=== PATIENT | male | born 1995 | race Caucasian/White ===

== ENCOUNTER 2019-09-13 16:07 | Emergency (ER) | payer BC, OTHER, SELFPAY ==
--- NOTE | 2019-09-13 16:30 | ED.URI ---
HPI - URI/Sore Throat General Chief Complaint: Upper Respiratory Infection Stated Complaint: sore throat History of Present Illness HPI Narrative: This is a 24 year old that comes in complaining of a sore throat that started yesterday and his tonsil are swollen and it hurts to swallow . Patient states he want to make sure that he does not have strep because he had a fever although he does not know the temp. Related Data Allergies Allergy/AdvReac Type Severity Reaction Status Date / Time No Known Allergies Allergy Verified 09/13/19 16:25 Review of Systems Review of Systems: Narrative: CONSTITUTIONAL: Reports fever, chills, or sweats. EYES: Denies visual changes, redness, or discharge. ENT: Reports rhinorrhea, congestion, sore throat, or otalgia. CARDIOVASCULAR:Denies chest pain, palpitations, or edema. RESPIRATORY: Denies cough or dyspnea. GASTROINTESTINAL: Denies abdominal pain, nausea, vomiting, or diarrhea. GENITOURINARY: Denies dysuria or hematuria. SKIN:[Denies rash or itching. MUSCULOSKELETAL:Denies back pain, joint pain, or myalgia. NEUROLOGIC: Denies headache, numbness, or weakness. PSYCHIATRIC:Denies anxiety or depression PMFSH Comments At time as signature, I have reviewed and agree with nursing past medical, social, surgical and family history. Please see nursing chart for further information. There is no relevant family history pertinent to the presenting complaint. Exam Narrative: Exam Narrative: GENERAL:Well-appearing, well-nourished, and in no acute distress. HEAD:Normocephalic, atraumatic. EYES: PERRLA and EOMI. ENT: Nares clear, no rhinorrhea or epistaxis. Mucous membranes moist. Pharyngeal erythema bilateral enlarged tonsils with exudate copious secretions NECK: Supple. CHEST: Clear to auscultation. No respiratory distress. HEART: Regular rate and rhythm. No murmur heard. Normal peripheral pulses. ABDOMEN: Soft, nontender, nondistended, normal active bowel sounds. EXTREMITIES: Normal range of motion. No edema. SKIN: Warm, dry, no rash. NEURO: No focal deficits. Alert and oriented x3. Course Vital Signs Vital signs: Vital Signs Temperature 99.2 F 09/13/19 16:40 Pulse Rate 101 H 09/13/19 16:40 Respiratory Rate 16 09/13/19 16:40 Blood Pressure 120/81 09/13/19 16:40 Pulse Oximetry 100 09/13/19 16:40 Temperature 99.2 F 09/13/19 16:40 Pulse Rate 101 H 09/13/19 16:40 Respiratory Rate 16 09/13/19 16:40 Blood Pressure 120/81 09/13/19 16:40 Pulse Oximetry 100 09/13/19 16:40 MDM - URI/Sore Throat Lab Data Labs: Strep Screen Positive Group A Strep *(Reference Range: Negative)* Discharge Plan Discharge Clinical Impression: Strep throat Patient Disposition: Home, Self-Care Condition: Stable Instructions: Antibiotic Form, Strep Throat (ED) Additional Instructions: Gargle warm salt water change you toothbrush in 2 days Drink plenty of fluids Take your medication as directed. Prescriptions: New amoxicillin 500 mg capsule 500 mg PO Q12H 10 Days Qty: 20 RF: 0 Follow-up/Referrals: UNKNOWN,DOCTOR [Primary Care Provider] - Time of Disposition: 16:33 Discharge Date/Time: 09/13/19 16:37
[2019-09-13 16:40] VITALS: BP 120/81; PULSE 101; RESP 16; TEMP 37.3; O2SAT 100
== END 2019-09-13 16:37 | disposition home or self-care (01) ==
PROVIDERS: Emergency Provider Nurse Practitioner Family
DX: J02.0 Streptococcal pharyngitis (principal)
CPT/HCPCS: 87880; 99213; G0463

== ENCOUNTER 2019-12-31 14:21 | Emergency (ER) | payer OTHER, SELFPAY ==
[2019-12-31 14:30] VITALS: BP 133/90; PULSE 55; RESP 16; TEMP 36.9; O2SAT 100
--- NOTE | 2019-12-31 14:30 | ED.GENADULT ---
HPI - General Adult General Chief complaint: Wound/Laceration Stated complaint: Laceration on Wrist Time Seen by Provider: 12/31/19 14:38 Source: patient Mode of arrival: ambulatory Limitations: no limitations History of Present Illness HPI narrative: 24-year-old male patient presents to the [facility] with complaints of a laceration to the left wrist that he did with a saw today. Patient states he was building a fence. Patient unaware of when his last tetanus shot was states that he will call his mother. Patient denies any numbness or tingling and denies any decrease in range of motion. Related Data Allergies Allergy/AdvReac Type Severity Reaction Status Date / Time No Known Allergies Allergy Verified 12/31/19 14:39 Review of Systems Review of Systems: Narrative: CONSTITUTIONAL: Denies fever, chills, or sweats. EYES: Denies visual changes, redness, or discharge. ENT: Denies rhinorrhea, congestion, sore throat, or otalgia. CARDIOVASCULAR: Denies chest pain, palpitations, or edema. RESPIRATORY: Denies cough or dyspnea. GASTROINTESTINAL: Denies abdominal pain, nausea, vomiting, or diarrhea. GENITOURINARY: Denies dysuria or hematuria. SKIN: Denies rash or itching. Positive laceration left wrist MUSCULOSKELETAL: Denies back pain, joint pain, or myalgia. NEUROLOGIC: Denies headache, numbness, or weakness. PSYCHIATRIC: Denies anxiety or depression. PMFSH Comments At the time of my signature I agree with nursing past medical history, surgical, social, and family history. There is no relevant family history pertinent to the presenting complaint. Exam Narrative: Exam Narrative: GENERAL: Well-appearing, well-nourished, and in no acute distress. HEAD: Normocephalic, atraumatic. EYES: PERRLA and EOMI. ENT: Nares clear, no rhinorrhea or epistaxis. Mucous membranes moist. NECK: Supple. No lymphadenopathy CHEST: Clear to auscultation. No respiratory distress. HEART: Regular rate and rhythm. No murmur heard. Normal peripheral pulses. ABDOMEN: Soft, nontender, nondistended, normal active bowel sounds. EXTREMITIES: Normal range of motion. No edema. SKIN: Warm, dry, no rash. Patient has approximately 3.5 cm x 1 cm laceration noted to the left lateral wrist. Patient has excellent range of motion to the wrist as well as the fingers no obvious evidence for tendon laceration. No obvious evidence for foreign bodies. NEURO: No focal deficits. Alert and oriented x3. Course Vital Signs Vital signs: Vital Signs Temperature 36.9 C 12/31/19 14:30 Pulse Rate 55 L 12/31/19 14:30 Respiratory Rate 16 12/31/19 14:30 Blood Pressure 133/90 12/31/19 14:30 Pulse Oximetry 100 12/31/19 14:30 Temperature 36.9 C 12/31/19 14:30 Pulse Rate 55 L 12/31/19 14:30 Respiratory Rate 16 12/31/19 14:30 Blood Pressure 133/90 12/31/19 14:30 Pulse Oximetry 100 12/31/19 14:30 Vital signs reviewed. The patient has been informed that they may have pre-hypertension or Hypertension based on a BP reading in the department. I recommend that the patient call the primary care provider listed on their discharge instructions or a physician of their choice this week to arrange follow up for further evaluation of possible pre-hypertension or Hypertension Procedures Laceration Laceration 1: Date: 12/31/19 Time: 15:00 Site: upper extremity (Wrist) Side (If applicable): left Size (cm): 3.5 Description: linear Depth: simple, single layer Local Anesthetic: lidocaine 1% Amount of anesthesia used (mL): 6 Pre-repair: wound explored, irrigated and irrigated extensively ====== Skin Level ====== Skin layer closed with: vicryl Size (cm): 4-0 Number of sutures: 5 Technique: simple, interrupted ====== Subcutaneous Layer ====== ====== Muscle Layer ====== ====== Tendon Layer ====== Dressing: The Procedure was explained and verbal
[2019-12-31] MEDS: TETANUS,DIPHTHERIA,AC PERTUSSIS ADULT (0.5 ML) BOOSTRIX IM (14:53)
== END 2019-12-31 15:18 | disposition home or self-care (01) ==
PROVIDERS: Emergency Provider Nurse Practitioner Family
DX: S61.512A Laceration without foreign body of left wrist, initial encounter (principal); W27.0XXA Contact with workbench tool, initial encounter; Z23 Encounter for immunization
CPT/HCPCS: 12002; 90471; 90715; 99213; G0463

== ENCOUNTER 2020-06-23 10:47 | Emergency (ER) | payer OTHER, SELFPAY ==
[2020-06-23 11:00] VITALS: BP 135/80; PULSE 125; RESP 20; TEMP 37.1; O2SAT 98
--- NOTE | 2020-06-23 11:36 | ED.URI ---
HPI - URI/Sore Throat General Chief Complaint: Upper Respiratory Infection Stated Complaint: sore throat Time Seen by Provider: 06/23/20 11:16 Source: patient and RN notes reviewed Mode of arrival: ambulatory Limitations: no limitations History of Present Illness HPI Narrative: Patient presents today complaining of a 3-day history of sore throat. 2 days ago he did a telemedicine visit with his doctor and was placed on azithromycin. Associated symptoms include subjective fever, sweats, and left-sided neck pain. Reports increased pain with swallowing. Declines to get the pain rating. Denies ear pain, shortness of breath, difficulty swallowing, nausea, vomiting, diarrhea, headache. He has been taking ibuprofen without relief. 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 MD elicited complaint: sore throat Related Data Allergies Allergy/AdvReac Type Severity Reaction Status Date / Time No Known Allergies Allergy Verified 06/23/20 11:19 Review of Systems Review of Systems: Narrative: CONSTITUTIONAL: Denies body aches, , chills. + Subjective fever, sweats EYES: Denies visual changes, redness, or discharge. ENT: Denies rhinorrhea, congestion, or otalgia. + Sore throat CARDIOVASCULAR: Denies chest pain, palpitations, or edema. RESPIRATORY: Denies cough or dyspnea. GASTROINTESTINAL: Denies abdominal pain, nausea, vomiting, or diarrhea. GENITOURINARY: Denies dysuria or hematuria. SKIN: Denies rash, itching, or wounds. MUSCULOSKELETAL: Denies back pain, joint pain, or myalgia. NEUROLOGIC: Denies headache, numbness, tingling, or weakness. PSYCH: Denies depression or anxiety. PMFSH Comments At time of signature, I have reviewed and agree with nursing past medical, surgical, social and family history unless otherwise noted. Please see nursing chart for further information. There is no relevant family history pertinent to the presenting complaint Exam Narrative: Exam Narrative: GENERAL: Well-appearing, well-nourished, and in no acute distress. HEAD: Normocephalic, atraumatic. EYES: EOMI. No redness or drainage. Conjunctivae normal. ENT: Mucous membranes pink and moist. Nares clear. No rhinorrhea. TMs normal bilaterally. Left tonsil is 3-4+ with copious white exudate. Right tonsil is 1+ without exudate. Uvula midline at this time. NECK: Normal AROM. Supple. Left anterior cervical chain lymphadenopathy. CHEST: No respiratory distress. Clear to auscultation. HEART: Regular rate and rhythm. No murmur appreciated. Normal peripheral pulses. EXTREMITIES: Normal range of motion. No edema. SKIN: Warm, dry, no rash. Capillary refill normal. Normal skin turgor. NEURO: No focal deficits. Alert and oriented x3. Gait steady. PSYCH: Normal affect. No signs of depression or anxiety. Course Vital Signs Vital signs: Vital Signs Temperature 98.7 F 06/23/20 11:00 Pulse Rate 125 H 06/23/20 11:00 Respiratory Rate 20 06/23/20 11:00 Blood Pressure 135/80 06/23/20 11:00 Pulse Oximetry 98 06/23/20 11:00 Temperature 98.7 F 06/23/20 11:00 Pulse Rate 125 H 06/23/20 11:00 Respiratory Rate 20 06/23/20 11:00 Blood Pressure 135/80 06/23/20 11:00 Pulse Oximetry 98 06/23/20 11:00 Reviewed. Pt has been instructed to follow up with his PCP regarding his elevated blood pressure today. MDM - URI/Sore Throat MDM Narrative Medical decision making narrative: Recommendation made for patient to go to the ER to rule out peritonsillar abscess or retropharyngeal abscess due to significant asymmetry of tonsils. Patient refuses transfer. Risks and benefits fully explained to patient. He is A&O x4 and does not seem under the influence of alcohol or drugs and is able to make his own medical decisions. He is willing to sign AMA pap
== END 2020-06-23 11:45 | disposition left against medical advice (07) ==
PROVIDERS: Emergency Provider Nurse Practitioner
DX: J03.90 Acute tonsillitis, unspecified (principal)
CPT/HCPCS: 99213; G0463

== ENCOUNTER 2020-11-01 18:58 | Emergency (ER) | payer OTHER, SELFPAY ==
[2020-11-01 19:05] VITALS: BP 124/70; PULSE 118; RESP 20; TEMP 37.9; O2SAT 99
--- NOTE | 2020-11-01 19:10 | ED.URI ---
HPI - URI/Sore Throat General Chief Complaint: Upper Respiratory Infection Stated Complaint: Sore Throat Time Seen by Provider: 11/01/20 19:10 Source: patient and RN notes reviewed History of Present Illness HPI Narrative: Patient is a 25-year-old male who presents the urgent care with complaints of 2-day history of sore throat and cough. Patient states he woke up last night with chills and sweats but denies of any known fevers. Patient states he also has a lot of postnasal drainage and body aches. States he has been taking NyQuil without much improvement. No other acute complaints. No acute distress noted. Patient aware of the plan of care. Some parts of this dictation were generated by voice recognition software and may contain typographical and/or grammatical inaccuracies. Related Data Allergies Allergy/AdvReac Type Severity Reaction Status Date / Time No Known Allergies Allergy Verified 11/01/20 19:22 Review of Systems Review of Systems: Narrative: CONSTITUTIONAL: Reports of chills and sweats EYES: Denies visual changes, redness, or discharge. ENT: Reports of sore throat, postnasal drainage CARDIOVASCULAR: Denies chest pain, palpitations, or edema. RESPIRATORY: Reports of cough without dyspnea GASTROINTESTINAL: Denies abdominal pain, nausea, vomiting, or diarrhea. GENITOURINARY: Denies dysuria or hematuria. SKIN: Denies rash or itching. MUSCULOSKELETAL: Denies back pain, joint pain, or myalgia. NEUROLOGIC: Denies headache, numbness, or weakness. All other systems reviewed are negative, except as documented in HPI. PMFSH Comments At the time of my signature, I reviewed and agree with the nursing past medical, surgical, social, and family history. There is no relevant family history pertinent to the patient complaint. Exam Narrative: Exam Narrative: GENERAL: This is a well-nourished, well-developed patient, in no apparent distress. HEAD: normocephalic, atraumatic. EYES: PERRL. Sclera clear/white. Vision is grossly intact. EARS: External ears normal, auditory canals clear and without drainage, TMs normal without perforation. Hearing grossly intact. NOSE: External nose normal with no obvious nasal discharge, nares without redness, no rhinorrhea. THROAT: Mucous membranes moist, moderate erythema noted posterior pharynx and mild bilateral tonsillar edema with notable exudate to the right. Moderate postnasal drainage NECK: Neck supple, non-tender without lymphadenopathy CARDIOVASCULAR: Regular rate and rhythm without murmurs, gallops, or rubs. RESPIRATORY: Clear to auscultation. Breath sounds equal bilaterally. No wheezes, rales, or rhonchi. SKIN: warm, intact with no suspicious lesions or rash, good texture and turgor. NEURO: awake, alert, and oriented to person, place and time. There were no obvious focal neurologic abnormalities. EXTREMITIES: No clubbing, cyanosis, or edema. Course Vital Signs Vital signs: Vital Signs Temperature 100.2 F H 11/01/20 19:05 Pulse Rate 118 H 11/01/20 19:05 Respiratory Rate 20 11/01/20 19:05 Blood Pressure 124/70 11/01/20 19:05 Pulse Oximetry 99 11/01/20 19:05 Temperature 100.2 F H 11/01/20 19:05 Pulse Rate 118 H 11/01/20 19:05 Respiratory Rate 20 11/01/20 19:05 Blood Pressure 124/70 11/01/20 19:05 Pulse Oximetry 99 11/01/20 19:05 Reviewed MDM - URI/Sore Throat MDM Narrative Medical decision making narrative: Reviewed lab results with the patient. He is aware that strep swab was negative. However due to past of exudative tonsillitis and severe swelling, will treat with azithromycin and steroids. Advised the patient to complete antibiotics and steroids as prescribed. You should take a daily antihistamine and use Flonase nasal spray as needed for postnasal drainage. It would be ferreira to follow-up with a ENT for recurring tonsillitis. Use Tylenol/ibuprofen as needed. Follow-up with your PCP within 2 to 5 days or for worsening symptoms or failure to improve. Differenti
[2020-11-01 19:23] VITALS: BP 124/70; PULSE 118; RESP 20; TEMP 37.9; O2SAT 99
== END 2020-11-01 19:36 | disposition home or self-care (01) ==
PROVIDERS: Emergency Provider Nurse Practitioner Family
DX: J03.80 Acute tonsillitis due to other specified organisms (principal); B96.89 Other specified bacterial agents as the cause of diseases classified elsewhere
CPT/HCPCS: 87081; 87880; 99213; G0463

== ENCOUNTER 2020-12-11 11:41 | Emergency (ER) | payer OTHER, SELFPAY ==
[2020-12-11 11:45] VITALS: BP 128/62; PULSE 90; RESP 20; TEMP 36.8; O2SAT 100
--- NOTE | 2020-12-11 11:59 | ED.URI ---
HPI - URI/Sore Throat General Chief Complaint: Upper Respiratory Infection Stated Complaint: sore throat Time Seen by Provider: 12/11/20 11:59 Source: patient and RN notes reviewed Mode of arrival: ambulatory Limitations: no limitations History of Present Illness HPI Narrative: 25 year old male who presents to [facility] care with one day history of acute sore throat, states he is unsure of temperature but awoke this morning with sweats. Patient states that he has been having issues with his tonsils for the past few month, he will have strep and then not be positive for strep but have pus pockets on tonsils and swollen tonsils. Patient states that he has been taking Ibuprofen for his pain and fevers. MD elicited complaint: fever and sore throat Pertinent past history: other (tonsillitis) Onset (ago): day(s) (1) Consistency: progressively worsening Severity: severe Description of mucous: clear Able to tolerate fluids by mouth: Yes Exacerbating factors: swallowing Relieving factors: NSAID Associated symptoms: fever Treatments prior to arrival: ibuprofen Related Data Allergies Allergy/AdvReac Type Severity Reaction Status Date / Time No Known Allergies Allergy Verified 12/11/20 11:59 Review of Systems Review of Systems: Narrative: CONSTITUTIONAL: Positive for fever, chills, or sweats. EYES: Denies visual changes, redness, or discharge. ENT: Denies rhinorrhea, congestion, positive sore throat, no otalgia. CARDIOVASCULAR: Denies chest pain, palpitations, or edema. RESPIRATORY: Denies cough or dyspnea. GASTROINTESTINAL: Denies abdominal pain, nausea, vomiting, or diarrhea. GENITOURINARY: Denies dysuria or hematuria. SKIN: Denies rash or itching. MUSCULOSKELETAL: Denies back pain, joint pain, or myalgia. NEUROLOGIC: Denies headache, numbness, or weakness. PSYCHIATRIC: Denies anxiety or depression. All systems reviewed & are unremarkable except as noted in HPI and below PMFSH Past Medical History Medical History (Updated 12/11/20 @ 13:17 by Lindsay Magallanes NP) Fracture closed, sternum from bull riding Heart contusion History of streptococcal sore throat Injury of left rotator cuff Injury of right rotator cuff Surgical History Surgical History (Updated 12/11/20 @ 12:36 by Lindsay Magallanes NP) No history of previous surgery Family History Family History (Updated 12/11/20 @ 12:38 by Lindsay Magallanes NP) Other No significant family history Social History Social History (Updated 12/11/20 @ 12:38 by Lindsay Magallanes NP) Smoking status: Current some day smoker Tobacco type: cigarettes Alcohol intake: current Alcohol use details: social Substance use: never Living arrangements: with family Gender identity (if verbalized by the patient): Male Exam Narrative: Exam Narrative: GENERAL: Well-appearing, well-nourished, and in no acute distress. HEAD: Normocephalic, atraumatic. EYES: PERRLA and EOMI. ENT: Nares clear, no rhinorrhea or epistaxis. Mucous membranes moist.TMs normal with good light reflex. Throat red with lesions and exudates noted on enlarged tonsils especially left denies any difficulty swallowing at this time but painful. NECK: Supple.bilateral lymphadenopathy CHEST: Clear to auscultation. No respiratory distress.SAO2 100% on room air HEART: Regular rate and rhythm. No murmur heard. Normal peripheral pulses. ABDOMEN: Soft, nontender, nondistended, normal active bowel sounds. EXTREMITIES: Normal range of motion. No edema. SKIN: Warm, dry, no rash. NEURO: No focal deficits. Alert and oriented x3. Course Vital Signs Vital signs: Vital Signs Temperature 36.8 C 12/11/20 11:45 Pulse Rate 90 12/11/20 11:45 Respiratory Rate 12/11/20 11:45 Blood Pressure 128/62 12/11/20 11:45 Pulse Oximetry 100 12/11/20 11:45 Temperature 36.8 C 12/11/20 11:45 Pulse Rate 90 12/11/20 11:45 Respiratory Rate 12/11/20 11:45 Blood Pressure 128/62 12/11/20 11:45 Puls
== END 2020-12-11 12:25 | disposition home or self-care (01) ==
PROVIDERS: Emergency Provider Registered Nurse
DX: J02.0 Streptococcal pharyngitis (principal); F17.210 Nicotine dependence, cigarettes, uncomplicated
CPT/HCPCS: 87880; 99213; G0463

== ENCOUNTER 2023-01-20 15:53 | Outpatient (CLI) | payer OTHER, SELFPAY ==
[2023-01-20 16:28] LABS: Basophils Absolute Auto 0.08 K/mm3 (0.00-0.10); Basophils Percent Auto 0.6 % (0.0-1.0); Eosinophils Absolute Auto 0.22 K/mm3 (0.02-0.50); Eosinophils Percent Auto 1.7 % (1.0-6.0); Hematocrit 40.6 % (40.0-54.0); Hemoglobin 14.2 g/dL (14.0-18.0); Immature Granulocyte Absolute 0.05 K/mm3 (0.00-0.00); Immature Granulocyte Percent A 0.4 % (0.0-0.0); Lymphocytes Absolute Auto 1.82 K/mm3 (1.10-4.50); Lymphocytes Percent Auto 13.8 % (18.0-42.0); Mean Corpuscular Hemoglobin 29.8 pg (27.0-31.0); Mean Corpuscular Volume 85.1 fL (78.0-102.0); Mean Platelet Volume 9.9 fl (8.7-11.0); Monocytes Absolute Auto 1.19 K/mm3 (0.10-0.90); Neutrophils Absolute Auto 9.8 K/mm3 (1.7-7.2); Neutrophils Percent Auto 74.5 % (50.0-70.0); Platelet Count Result 208 K/mm3 (150-420); Red Blood Count 4.77 M/mm3 (4.70-6.10); Red Cell Distribution Width 12.2 % (11.6-14.4); White Blood Count 13.2 K/mm3 (4.8-10.8)
[2023-01-20 16:37] LABS: D Dimer 0.19 mg/L (0.19-0.50)
[2023-01-20 16:50] LABS: Alanine Aminotransferase 23 U/L (16-63); Albumin Level 4.1 g/dL (3.4-5.0); Alkaline Phosphatase 72 U/L (46-116); Anion Gap 8 mmol/L (8-16); Aspartate Amino Transferase 17 U/L (15-37); Bilirubin,Total 0.4 mg/dL (0.00-1.00); Blood Urea Nitrogen 14 mg/dL (7-18); CRP 0.6 mg/dL (0.0-0.9); Carbon Dioxide 29 mmol/L (21-32); Chloride 104 mmol/L (98-108); Creatine Kinase 329 U/L (39-308); Estimated Glomerular Filt Rate > 60; Free T4 Free Thyroxine 0.85 ng/dL (0.76-1.46); Glucose 91 mg/dL (70-99); Osmolality Calculated 292 mOsm/kg (285-295); Potassium 3.8 mmol/L (3.5-5.1); Sodium 141 mmol/L (136-145); Thyroid Stimulating Hormone 1.37 uIU/mL (0.36-3.74); Total Protein 7.4 g/dL (6.4-8.2); Troponin I 4.4 ng/L (0.00-60.4)
[2023-01-21 10:32] LABS: Monoscreen Negative (Negative); Negative Monotest Control Negative (Negative); Positive Monotest Control Positive (Positive)
== END 2023-01-20 15:54 | disposition home or self-care (01) ==
LOC: CHSLAB 15:56
PROVIDERS: PCP Internal Medicine; Visit Provider Nurse Practitioner Family
DX: R07.81 Pleurodynia (principal); R06.02 Shortness of breath; J02.0 Streptococcal pharyngitis; R53.83 Other fatigue
CPT/HCPCS: 36415; 80053; 82550; 82553; 84439; 84443; 84484; 85025; 85380; 86140; 86308